=== PATIENT | female | born 1975 | race Hispanic/Latino ===

== ENCOUNTER 2018-01-07 14:04 | Emergency (ER) | payer SELFPAY ==
[2018-01-07] MEDS ORDERED: DEXAMETHASONE SOD PHOSPHATE 10MG/ML 1ML VIAL ONE (14:19)
[2018-01-07] MEDS ORDERED: ACETAMINOPHEN EXTRA STRENGTH 500 MG TABLET ONE (14:22)
== END 2018-01-07 15:20 | disposition home or self-care (01) ==
LOC: EDH 14:04
DX: L24.9 Irritant contact dermatitis, unspecified cause (principal); Z90.710 Acquired absence of both cervix and uterus
CPT/HCPCS: 96372; 99283; J1100

== ENCOUNTER → 2019-02-03 | Outpatient (CLI) | payer OTHER | END | disposition home or self-care (01) | LOC: RAH 14:26 | PROVIDERS: ATTEND Family Medicine | DX: R53.83 Other fatigue (principal) | CPT/HCPCS: 76536 ==